=== PATIENT | female | born 1985 ===

== ENCOUNTER 2017-08-12 00:35 | Emergency (ER) | payer OTHER ==
[2017-08-12 00:48] VITALS: RESP 16; TEMP 97.8
[2017-08-12] MEDS ORDERED: Sodium Chloride 0.9% 1,000 ML ONE (01:42)
[2017-08-12] MEDS ORDERED: Sodium Chloride 0.9% 1,000 ML IV ONE (01:58)
--- NOTE | 2017-08-12 02:39 | C.PDOC ---
History Of Present Illness 32 y/o female presents to the ED for evaluation of nausea, vomiting and epigastric abdominal pain which began today with bodyaces and headache. pt reports having soft bowel movements today. Denies fever, chills, Patient had sick contact with children, who present to the ED with similar symptoms. Time Seen by Provider: 08/12/17 01:40 Chief Complaint (Nursing): Flu-like Symptoms History Per: Patient History/Exam Limitations: no limitations Onset/Duration Of Symptoms: Days Current Symptoms Are (Timing): Still Present Sick Contacts (Context): Family Member(s) Associated Symptoms: Nausea. denies: Fever, Chills, Vomiting Ear Symptoms: Bilateral: None Additional History Per: Patient Past Medical History Reviewed: Historical Data, Nursing Documentation, Vital Signs Vital Signs: Last Vital Signs Temp 97.8 F 08/12/17 00:44 Pulse 76 08/12/17 03:52 Resp 16 08/12/17 03:52 BP 111/72 08/12/17 03:52 Pulse Ox 99 08/15/17 08:34 - Medical History PMH: Migraine Surgical History: No Surg Hx Family History: States: Unknown Family Hx - Social History Hx Alcohol Use: No Hx Substance Use: No Review Of Systems Constitutional: Negative for: Fever, Chills Gastrointestinal: Positive for: Nausea, Abdominal Pain (epigastric ). Negative for: Vomiting Physical Exam - Physical Exam Appears: Non-toxic, No Acute Distress Skin: Normal Color, Warm, Dry Head: Atraumatic, Normacephalic Eye(s): bilateral: Normal Inspection Oral Mucosa: Moist Neck: Supple Chest: Symmetrical, No Deformity, No Tenderness Cardiovascular: Rhythm Regular, No Murmur Respiratory: Normal Breath Sounds, No Rales, No Rhonchi, No Wheezing Gastrointestinal/Abdominal: Soft, Tenderness (mild, epigastric ), No Guarding, No Rebound Extremity: Normal ROM, Capillary Refill (less than 2 seconds ) Neurological/Psych: Oriented x3, Normal Speech, Normal Cognition Gait: Steady ED Course And Treatment O2 Sat by Pulse Oximetry: 99 (on RA) Pulse Ox Interpretation: Normal Medical Decision Making Medical Decision Making: pt with nausea vomiting, ab pain, urinary symptoms. pt feeling much better after ivf, pepcid and zofran. abdomen soft, nd, nt on re-exam. will d/c home with cipro, pepcid and zofran Disposition Counseled Patient/Family Regarding: Studies Performed, Diagnosis, Need For Followup, Rx Given - Disposition Referrals: [facility] [Outside] Disposition: HOME/ ROUTINE Disposition Time: 04:28 Condition: IMPROVED Additional Instructions: Drink increased fluids. Eat bland food as tolerated. Take ondansetron and pepcid if needed for nausea and pain. Take Cipro for urinary tract infection. Follow up in clinic or with your doctor. Return to ER for any worse symptoms. 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 - Scribe Statement The provider has reviewed the documentation as recorded by the Scribe (Yelena Clarke) All medical record entries made by the Scribe were at my direction and personally dictated by me. I have reviewed the chart and agree that the record accurately reflects my personal performance of the history, physical exam, medical decision making, and the department course for this patient. I have also personally directed, reviewed, and agree with the discharge instructions and disposition.
[2017-08-12 03:00] LABS: SQUAMOUS EPITHIAL 13 /hpf (0-5); URINE BACTERIA RARE (<OCC); URINE BILIRUBIN NEGATIVE (NEGATIVE); URINE BLOOD NEGATIVE (NEGATIVE); URINE CLARITY Hazy (Clear); URINE COLOR Yellow (YELLOW); URINE GLUCOSE (UA) NORMAL (Normal); URINE LEUKOCYTE ESTERASE 2+ Leu/uL (Negative); URINE NITRATE NEGATIVE (NEGATIVE); URINE PROTEIN 1+ mg/dL (NEGATIVE); URINE UROBILINOGEN NORMAL mg/dL (0.2-1.0)
[2017-08-12] MEDS ORDERED: Sodium Chloride 0.9% 500 ML IV ONE ×2 (03:12→03:14)
[2017-08-12 03:53] VITALS: BP 111/72; PULSE 76
[2017-08-12 04:27] VITALS: O2SAT 99
== END 2017-08-12 04:39 | disposition home or self-care (01) ==
LOC: C.ER 00:35
DX: K52.9 Noninfective gastroenteritis and colitis, unspecified (principal); N39.0 Urinary tract infection, site not specified
CPT/HCPCS: 81001; 87804; 96361; 96374; 96375; 99285; J2405; J7040